=== PATIENT | female | born 1995 | race Caucasian/White ===

== ENCOUNTER 2018-05-16 12:51 | Emergency (ER) | payer MEDICAID ==
[~2018-05-16] VITALS: Ht 149.9 cm; Wt 41.7 kg
[2018-05-16 13:08] VITALS: BP_SYST 115
[2018-05-16] MEDS ORDERED: KETOROLAC TROMETHAMINE 30 MG VIAL IM ONE (13:45)
[2018-05-16] MEDS ORDERED: KETOROLAC TROMETHAMINE 30 MG VIAL IVP ONE (13:45)
[2018-05-16 14:21] LABS: BILIRUBIN,URINE NEGATIVE (NEGATIVE); CLARITY/URINE HAZY (CLEAR); COLOR,URINE YELLOW (YELLOW); GLUCOSE,URINE NEGATIVE (NEGATIVE); KETONES,URINE NEGATIVE (NEGATIVE); LEUKOCYTE ESTERASE ,URINE TRACE (NEGATIVE); NITRITE, URINE NEGATIVE (NEGATIVE); PROTEIN URINE NEGATIVE (NEGATIVE)
[2018-05-16 14:30] LABS: BLOOD, URINE TRACE (NEGATIVE)
[2018-05-16 14:44] LABS: BACTERIA,URINE FEW /HPF (None Seen); URINE AMORPHOUS PHOSPHATES 1+ /HPF (None Seen)
[2018-05-16 14:55] VITALS: BP_SYST 115
== END 2018-05-16 14:55 | disposition home or self-care (01) ==
LOC: SED 12:51
DX: G44.209 Tension-type headache, unspecified, not intractable (principal); N39.0 Urinary tract infection, site not specified
CPT/HCPCS: 81000; 81025; 82962; 87086; 96372; 99283; J1885

== ENCOUNTER 2023-05-15 10:24 | Emergency (ER) | payer MEDICAID ==
[~2023-05-15] VITALS: Ht 149.9 cm; Wt 44.5 kg
[2023-05-15 10:45] VITALS: BP_SYST 114; PULSE 87; RESP 22; TEMP 98.3; O2SAT 100
[2023-05-15] MEDS ORDERED: PRED50TA PO (11:27)
[2023-05-15] MEDS ORDERED: ZIT250 PO (11:27)
[2023-05-15 11:36] VITALS: BP_SYST 114; PULSE 87; RESP 22; TEMP 98.3; O2SAT 100
== END 2023-05-15 11:34 | disposition home or self-care (01) ==
LOC: SED 10:24
DX: J02.9 Acute pharyngitis, unspecified (principal); H66.91 Otitis media, unspecified, right ear; Z79.899 Other long term (current) drug therapy
CPT/HCPCS: 99283